=== PATIENT | male | born 1955 | race Caucasian/White ===

== ENCOUNTER 2017-10-23 17:44 | Observation (INO) ==
[2017-10-23] MEDS ORDERED: IOPAMIDOL 100 ML BOTTLE IV ONE (17:45)
[2017-10-23] MEDS ORDERED: 0.9 % SODIUM CHLORIDE 2,000 ML IV ONE (18:28)
[2017-10-23 18:50] LABS: Basophils # (Auto) 0 K/mcL (0.0-0.3); Basophils % (Auto) 0.2 % (0.0-2.0); Eosinophils # (Auto) 0.2 K/mcL (0.0-0.7); Granulocytes % (Auto) 78.8 % (38.0-78.0); Lymphocytes # (Auto) 1.3 K/mcL (1.5-4.8); Lymphocytes % (Auto) 13.1 % (15.5-49.0); Mean Cell Volume 90.8 fL (80.0-100.0); Mean Corpuscular HGB Conc 33.3 g/dL (31.0-36.0); Mean Corpuscular Hemoglobin 30.2 pg (26.0-34.0); Monocytes # (Auto) 0.6 K/mcL (0.1-0.9); Monocytes % (Auto) 5.9 % (1.0-12.0); Platelet Count 173 K/mcL (140-440); RBC 5.19 M/mcL (4.50-5.90); Red Cell Distribution Width 12.7 % (11.5-14.5)
[2017-10-23 19:11] LABS: ALT/SGPT 23 U/l (0-40); Albumin 4.3 gm/dL (3.2-5.2); Albumin/Globulin Ratio 1.7 (1.0-2.3); Alkaline Phosphatase 89 U/L (39-117); Blood Urea Nitrogen 16 mg/dl (6-20); Creatine Kinase 310 IU/L (24-195); Creatine Kinase MB 6.3 ng/ml (0-4.9); Myoglobin 120 ng/ml (28-72)
--- NOTE | 2017-10-23 19:41 | Cat Scan Report ---
CLINICAL INFORMATION: Syncope. Fall. Chiropractic manipulation COMPARISON: None. TECHNIQUE: Axial noncontrast-enhanced images through the brain. FINDINGS: No acute intracranial hemorrhage. No intra-axial hematoma. Cerebral hemispheres are negative. No localized mass effect. No midline shift. Brain thigh is normal. No hydrocephalus. Brainstem and cerebellum are negative. No focal attenuation abnormality. No acute abnormality. No intracranial, extra-axial abnormality. No subdural or subarachnoid hemorrhage. Temporal bones are negative. Calvarium is negative. No fracture. No lytic lesion. IMPRESSION: Negative noncontrast enhanced brain CT scan The exam was performed using radiation dose optimization techniques including, but not limited to, automated exposure control, adjustment of the mA and/or kV according to patient size and use of iterative reconstruction technique. Interpreted and Authenticated by: Zaid Mera 10/23/17
--- NOTE | 2017-10-23 20:01 | Cat Scan Report ---
ORIGINAL REPORT CLINICAL INFORMATION: Syncope. Fall. Chiropractic manipulation TECHNIQUE: Axial images through the neck. 80 mL of intravenous contrast material injected. Scanning was performed during arterial phase. Sagittal and coronally reformatted images. MIP reformatted images. COMPARISON: None. FINDINGS: Abnormal right vertebral artery. Origin of the right vertebral artery is normal. Right vertebral artery is patent to the C6 level. There is occlusion of the right vertebral artery from C6 to the skull base. There is reconstitution at the skull base with patent intracranial right vertebral artery. There is a single short segment of intraluminal contrast material at the C2-3 level. Findings are consistent with dissection and occlusion. High-grade, subtotal occlusion is possible. Catheter angiography may be helpful to evaluate for patency and to determine whether anticoagulation is appropriate. Left vertebral artery is normal. Common carotid arteries and internal carotid arteries are normal. Intracranial vertebral arteries are patent and normal. Basilar artery is normal. No basilar artery stenosis. Petrous, cavernous, supraclinoid segments of the internal carotid arteries are normal. There is atherosclerotic calcification within the cavernous segment of the left internal carotid artery. M1 segments of the middle cerebral arteries and A1 segments of the anterior cerebral arteries are negative. Moderate to severe degenerative disc disease at C5-6. C6-7 disc is severely narrowed and there may be partial bony fusion. No cervical spine fracture. No perched or locked facet. Spinous processes are negative. No prevertebral soft tissue swelling. No cervical soft tissue abnormality. Visualized portions of the lungs are negative. Superior mediastinum is negative. IMPRESSION: 1. 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 Subtotal occlusion is not excluded and catheter angiography may be helpful if clinically indicated 2. Findings are consistent with right vertebral artery dissection. 3. No other vascular abnormalities. Intracranial portion of the right vertebral artery is patent 4. Degenerative disc disease as above ADDENDUM #1 Addendum: In the impression the first finding described right vertebral artery dissection and partial occlusion. I meant to describe occlusion on the CTA rather than partial occlusion. As described for angiography may be helpful to evaluate for subtotal occlusion. Interpreted and Authenticated by: Zaid Mera 10/24/17
[2017-10-23] MEDS ORDERED: CLOPIDOGREL 75 MG TABLET PO ONE (21:14)
[2017-10-23] MEDS ORDERED: ASPIRIN 325 MG ENTERIC COATED TABLET PO ONE (21:14)
--- NOTE | 2017-10-23 21:16 | Emergency Department Note ---
Syncope HPI - General Chief Complaint: Syncope Stated Complaint: Syncope Time Seen by Provider: 10/23/17 18:05 Source: patient Mode of arrival: ambulatory Limitations: no limitations - History of Present Illness HPI Narrative: This 62-year-old male [facility] patient comes into the ER tonight for a syncopal episode. He was at a concert in the [facility] last night in the morning he got up to go the bathroom had a brief syncopal episode. He immediately picked himself up he was not injured. After getting dressed and getting ready to drive back to this area they stopped at [employer] where he had another syncopal episode in the bathroom and woke up on the floor. There was no warning. This time he did injure his neck and his shoulders and upper back. He was diaphoretic and had some pallor after this. He was exhausted for most of the drive back. because of the new shoulder and neck pain when he got back to [facility] he visited the $20 chiropractor advertised in [place]. He had his neck adjusted and that was was feeling better but decided to come into the ER to have the fainting episodes investigated. He does admit to drinking some alcohol last night but not this morning. He has never had anything like this before and notes that he had a recent physical with his primary care which was normal except for vitamin D deficiency. He says that he frequently hikes in the [place] and up and down hills without any difficulty. He drinks lots of fluids including soda. Denies seizure activity bowel or bladder issues - Related Data Home Medications Medication Instructions Recorded Confirmed Cetirizine HCl [All Day Allergy] 10 mg PO DAILY 10/23/17 10/23/17 Cholecalciferol (Vitamin D3) 5,000 unit PO DAILY 10/23/17 10/23/17 [Dialyvite Vitamin D] Docusate Sodium [Colace Clear] 50 mg PO BID 10/23/17 10/23/17 Fluticasone Propionate [Flonase] 1 spray NS BID 10/23/17 10/23/17 Montelukast Sodium [Singulair] 10 mg PO DAILY 10/23/17 10/23/17 Naproxen 500 mg PO BID 10/23/17 10/23/17 pseudoephedrine 30 mg tablet 30 mg PO BID tab 10/23/17 10/23/17 Allergies Allergy/AdvReac Type Severity Reaction Status Date / Time No Known Drug Allergies Allergy Verified 10/23/17 17:53 Review of Systems All systems ED: reviewed and negative except as stated. Past Medical History - Past Medical History Attestation: Yes: The following information was validated with the patient. Medical history: Reports: other (Allergic rhinitis, large prostate, vitamin D deficiency). Denies: hypertension Surgical history ED: Reports: tonsillectomy, other (Dental, deviated septum) - Social History smoking status: Never smoker Alcohol use: Reports: Recent Last drink: days (ago) Drug use: Reports: none Physical Exam No acute distress resting comfortably. Normocephalic atraumatic. Conjunctive are clear sclerae nonicteric. Pupils equal round reactive light accommodation. Extraocular movements are intact. Face is symmetrical. No nasal discharge or congestion. Oropharynx is pink and moist. Posterior pharynx is clear. Tongue is midline. Initially he is in a c-collar -posterior neck is nontender at this time as is the shoulder areas . Anterior neck is supple without lymphadenopathy thyromegaly or carotid bruit. Heart is regular rate and rhythm no murmur appreciated. Lungs are clear to auscultation bilaterally without wheezes rales rhonchi or respiratory distress. Abdomen soft nontender nondistended. No pedal edema. +2 radial pulse. Alert oriented. No dysarthria ataxia or tremor. Stands and walks without difficulty Limitations: no limitations Course Vital Signs Temperature 97.5 F 10/23/17 17:45 Pulse Rate 70 10/23/17 17:45 Respiratory Rate 20 10/23/17 17:45 Blood Pressure 170/91 10/23/17 17:45 Pulse Oximetry (%) 97 10/23/17 17:45 Temperature 97.5 F 10/23/17 17:45 Pulse Rate 67 10/23/17 22:30 Respiratory Rate 17 10/23/17 22:30 Blood Pressure 168/90 10/23/17 22:30 Pulse Oximetry (%) 91 10/23/17 22:30 Syncope - Lab Data Lab results reviewed: Yes I reviewed the patient's lab results. Result diagrams: 10/23/17 18:30 10/23/17 18:30 Lab Results 05/16/18 05/16/18 05/16/18 Range/Units 18:30 18:30 18:30 WBC 9.6 (4.5-11.0) K/mcL RBC 5.19 (4.50-5.90) M/mcL Hgb 15.7 (13.5-16.5) g/dL Hct 47.1 (41.0-55.0) % POC Hct (41.0-55.0) % MCV 90.8 (80.0-100.0) fL MCH 30.2 (26.0-34.0) pg MCHC 33.3 (31.0-36.0) g/dL RDW 12.7 (11.5-14.5) % Plt Count 173 (140-440) K/mcL MPV 11.3 H (7.4-10.4) fL Gran % 78.8 H (38.0-78.0) % Lymph % (Auto) 13.1 L (15.5-49.0) % Granite % (Auto) 5.9 (1.0-12.0) % Eos % (Auto) 2.0 (0.0-7.0) % Baso % (Auto) 0.2 (0.0-2.0) % Gran # 7.5 (1.8-8.0) K/mcL Lymph # (Auto) 1.3 L (1.5-4.8) K/mcL Granite # (Auto) 0.6 (0.1-0.9) K/mcL Eos # (Auto) 0.2 (0.0-0.7) K/mcL Baso # (Auto) 0 (0.0-0.3) K/mcL VBG Lactic Acid (0.5-2.2) mmol/L POC Sodium (133-145) mmol/L Sodium 139 (133-145) mmol/L POC Potassium (3.3-5.1) mmol/L Potassium 4.1 (3.3-5.1) mmol/L POC Chloride (96-108) mmol/L Chloride 99 (96-108) mmol/L Carbon Dioxide 26 (22-30) mmol/L POC Total CO2 (22-30) mmol/L Anion Gap 14.0 (8-16) POC BUN (6-20) mg/dl BUN 16 (6-20) mg/dl Creatinine 0.9 (0.7-1.2) mg/dl POC Creatinine (0.7-1.2) mg/dl GFR Calculation 93 Glucose 103 (70-105) mg/dL POC Glucose (70-105) mg/dL Calcium 9.5 (8.6-10.4) mg/dl POC WB Ioniz Calcium (1.16-1.32) mmol/L Magnesium (1.6-2.5) mg/dL Total Bilirubin 0.3 (0.0-1.0) mg/dL AST 25 (0-37) U/l ALT 23 (0-40) U/l Alkaline Phosphatase 89 (39-117) U/L Total Creatine Kinase 310 H (24-195) IU/L CK-MB (CK-2) 6.3 H (0-4.9) ng/ml Myoglobin 120 H (28-72) ng/ml Troponin T < 0.01 (0-0.03) ng/ml Total Protein 6.8 (5.9-8.4) gm/dL Albumin 4.3 (3.2-5.2) gm/dL Globulin 2.5 (2.2-3.7) gm/dL Albumin/Globulin Ratio 1.7 (1.0-2.3) Urine Opiates Screen (NONDETECTED) Ur Oxycodone Screen (NONDETECTED) Urine Methadone Screen (NONDETECTED) Ur Barbiturates Screen (NONDETECTED) Ur Phencyclidine Scrn (NONDETECTED) Ur Amphetamines Screen (NONDETECTED) U Benzodiazepines Scrn (NONDETECTED) Urine Cocaine Screen (NONDETECTED) U Marijuana (THC) Screen (NONDETECTED) 10/23/17 10/23/17 10/23/17 Range/Units 18:39 18:39 21:00 WBC (4.5-11.0) K/mcL RBC (4.50-5.90) M/mcL Hgb (13.5-16.5) g/dL Hct (41.0-55.0) % POC Hct 45.0 (41.0-55.0) % MCV (80.0-100.0) fL MCH (26.0-34.0) pg MCHC (31.0-36.0) g/dL RDW (11.5-14.5) % Plt Count (140-440) K/mcL MPV (7.4-10.4) fL Gran % (38.0-78.0) % Lymph % (Auto) (15.5-49.0) % Granite % (Auto) (1.0-12.0) % Eos % (Auto) (0.0-7.0) % Baso % (Auto) (0.0-2.0) % Gran # (1.8-8.0) K/mcL Lymph # (Auto) (1.5-4.8) K/mcL Granite # (Auto) (0.1-0.9) K/mcL Eos # (Auto) (0.0-0.7) K/mcL Baso # (Auto) (0.0-0.3) K/mcL VBG Lactic Acid 1.3 (0.5-2.2) mmol/L POC Sodium 137 (133-145) mmol/L Sodium (133-145) mmol/L POC Potassium 4.0 (3.3-5.1) mmol/L Potassium (3.3-5.1) mmol/L POC Chloride 103 (96-108) mmol/L Chloride (96-108) mmol/L Carbon Dioxide (22-30) mmol/L POC Total CO2 26 (22-30) mmol/L Anion Gap (8-16) POC BUN 18 (6-20) mg/dl BUN (6-20) mg/dl Creatinine (0.7-1.2) mg/dl POC Creatinine 1.0 (0.7-1.2) mg/dl GFR Calculation Glucose (70-105) mg/dL POC Glucose 103 (70-105) mg/dL Calcium (8.6-10.4) mg/dl POC WB Ioniz Calcium 1.19 (1.16-1.32) mmol/L Magnesium 1.8 (1.6-2.5) mg/dL Total Bilirubin (0.0-1.0) mg/dL AST (0-37) U/l ALT (0-40) U/l Alkaline Phosphatase (39-117) U/L Total Creatine Kinase (24-195) IU/L CK-MB (CK-2) (0-4.9) ng/ml Myoglobin (28-72) ng/ml Troponin T (0-0.03) ng/ml Total Protein (5.9-8.4) gm/dL Albumin (3.2-5.2) gm/dL Globulin (2.2-3.7) gm/dL Albumin/Globulin Ratio (1.0-2.3) Urine Opiates Screen None detected (NONDETECTED) Ur Oxycodone Screen None detected (NONDETECTED) Urine Methadone Screen None detected (NONDETECTED) Ur Barbiturates Screen None detected (NONDETECTED) Ur Phencyclidine Scrn None detected (NONDETECTED) Ur Amphetamines Screen None detected (NONDETECTED) U Benzodiazepines Scrn None detected (NONDETECTED) Urine Cocaine Screen None detected (NONDETECTED) U Marijuana (THC) Screen None detected (NONDETECTED) Urinalysis [id number] dipstick showed specific gravity 1.020 but otherwise normal - Radiology Data Radiology results reviewed: Yes I reviewed the patient's radiology results. CT scan of the head is read as normal CT scan of the neck soft tissues angiogram shows right-sided vertebral artery dissection with occlusion from C6 to the base of the skull. Also fused vertebrae C6-C7 with collapse of the disc-this is chronic. Significant degenerative changes to the neck - EKG Data EKG attestation: Yes I reviewed and interpreted this EKG. EKG results narrative: EKG showed a rate of 70 normal sinus rhythm without evidence of ischemia Disposition Pt seen by HUMAN SERVICES MANAGER/PA only: No Clinical Impression: Syncope and collapse, Vertebral artery dissection Occlusion of vertebral artery without cerebral infarction Qualifiers: Laterality: right Qualified Code(s): I65.01 - Occlusion and stenosis of right vertebral artery Summary: After initial interview and exam ordered workup which included EKG laboratory and CT scans. Notably the patient is asymptomatic at this time with no neurologic deficits After CT scan showed right vertebral artery dissection with partial to total occlusion I discussed the case with Dr. Scott, vascular surgeon at [place]. He did not feel that the syncopal episodes were related to the vertebral artery dissection as this would cause a posterior circulation syndrome which would include gait abnormalities and visual symptoms which the patient does not have. Further the patient has intact bilateral internal carotids as well as the right vertebral which are adequately supplying his brain. Dr. Scott recommended that we start him on dual antiplatelets such as aspirin/Plavix or Aggrenox and admit to the hospital for observation and workup of syncope as well as observing for strokelike symptoms overnight-he is asymptomatic though at this time. He said at this point standard of care is not to treat these totally occluded vertebral arteries but simply to monitor and prove they are safe to go home. I discussed the case with our hospitalist, Dr. Horn agreed to accept the patient for workup of the 2 syncopal episodes this morning as well as monitor for arrhythmias and stroke overnight, especially in light of the dissecting vertebral artery on the right. Disposition: Xfer As Outpt/Obs ([facility]) Condition: Fair
[2017-10-23] MEDS ORDERED: ASPIRIN 81 MG TAB.CHEW ONE (21:23)
[2017-10-23 21:35] LABS: Amphetamine Screen,Urine NONE DETECTED (NONDETECTED); Benzodiazepines Screen,Urine NONE DETECTED (NONDETECTED); Cocaine Screen,Urine NONE DETECTED (NONDETECTED); Opiate Screen,Urine NONE DETECTED (NONDETECTED); Oxycodone, Urine Screen NONE DETECTED (NONDETECTED)
[2017-10-23] MEDS ORDERED: ACETAMINOPHEN 325 MG TABLET PO PRN (22:54)
[2017-10-23] MEDS ORDERED: ONDANSETRON 4 MG/2 ML VIAL IV PRN (22:54)
[2017-10-23] MEDS ORDERED: oxyCODONE/APAP 5/325MG TABLET PO PRN (22:54)
[2017-10-23] MEDS ORDERED: NALOXONE HCL 0.4 MG/ML VIAL IV PRN (22:54)
--- NOTE | 2017-10-23 23:24 | Internal Med History&Physical ---
Medical - H&P: HPI Patient information: Note initiated : 10/23/17 at 11:21 pm Service Date, if different from initiated Date: [] Patient: Sharad Rosenberg 62 y/o M admitted on 10/23/17 for Syncope. Chief Complaint: [] History of present illness: Mr. Rosenberg is a 62 year old Male presents to the emergency room today after 2 episodes of syncope since this morning. The patient went to a concert yesterday I believe in [place], he had approximately 4 drinks to 5 drinks over a period of 5 hours, he thinks he ate adequately and drank a lot of pop but did not drink much fluids. The next morning he woke up and passed out for a short period of time, he remembers passing out and falling down, getting up and using the restroom. He went back and was fine after that, he then drove and was on his way back when he stopped at [employer]. While walking towards a [employer] restroom he was feeling a bit queasy and not well, he entered the restroom and then he passed down he was passed out for a short while he remembers waking up fixing that has been, using the restroom. He was sweaty peak fatigued after this episode. He flushed his face with water, sat down ate something after which he felt better. His then drove since then. After his fall at [employer] he has complained about significant pain in his neck. The pain was in the left side, intermittent sharp worsening radiating down the arm. The patient applied some topical analgesic to same. He then went to see a chiropractor after he arrived in [facility] who stated the neck for him after which he felt better. He then came to the emergency room for evaluation of his syncope. In the ER, the patient has stable vital signs and stable labs, he has mildly elevated CK. The patient EKG shows normal sinus rhythm, the patient chest x- ray is negative U tox is negative. 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 The case was reviewed with vascular surgery Dr Scott at [place]. He noted that the patient did not require transfer to higher center, this should be managed with antiplatelet agents advised aspirin and Plavix. The patient should be monitored overnight to ensure that there is no CVA. Also workup for syncope advised as he does not believe that the vertebral dissection was the cause for syncope. Patient is being admitted to the hospital for further evaluation. He received aspirin and Plavix in the ED. All systems: reviewed and no additional remarkable complaints except as stated ( 10 point systems reviewed, negative except as mentioned in the HPI) Medical - H&P: PMH Medical history: Multiple allergies Vitamin D deficiency History of kidney stones Surgical history: TOnsillectemy, adnodectomy Pertinent family history: mother , brain tumor, sister ca breast GM cad, GF cad, both had WI Social history: lives with etoh socially, ex tobacco chewer, many years ago - no recreational drug use. Medical - H&P: Meds Home Medications Medication Instructions Recorded Confirmed Type Cetirizine HCl [All Day Allergy] 10 mg PO DAILY 10/23/17 10/23/17 History Cholecalciferol (Vitamin D3) 5,000 unit PO DAILY 10/23/17 10/23/17 History [Dialyvite Vitamin D] Docusate Sodium [Colace Clear] 50 mg PO BID 10/23/17 10/23/17 History Fluticasone Propionate [Flonase] 1 spray NS BID 10/23/17 10/23/17 History Montelukast Sodium [Singulair] 10 mg PO DAILY 10/23/17 10/23/17 History Naproxen 500 mg PO BID 10/23/17 10/23/17 History pseudoephedrine 30 mg tablet 30 mg PO BID tab 10/23/17 10/23/17 History Allergies Allergy/AdvReac Type Severity Reaction Status Date / Time No Known Drug Allergies Allergy Verified 10/23/17 17:53 Medical - H&P: Exam - Constitutional Vitals: Temp Pulse Resp BP Pulse Ox 97.5 F 67 17 168/90 91 10/23/17 17:45 10/23/17 22:30 10/23/17 22:30 10/23/17 22:30 10/23/17 22:30 Exam: GENERAL: The patient is a well-developed, well-nourished in no apparent distress. Is alert and oriented x3. VITAL SIGNS: Reviewed and as noted elsewhere. HEENT: Head is normocephalic and atraumatic. Extraocular muscles are intact. Pupils are equal, round, and reactive to light. Nares appeared normal. Mouth appears any without lesions. Mucous membranes are moist. NECK: Normal to inspection, Supple, No lymphadenopathy or thyromegaly. LUNGS: Air entry equal on both sides, no wheezing, crackles or rhonchi noted. No accessory muscles of respiration HEART: Regular rate and rhythm normal, S1 and S2 heard, no Gallop, S3 or Rub Noted, No Gross murmur heard. ABDOMEN: Soft, nontender, and nondistended. Positive bowel sounds. No hepatosplenomegaly was noted. EXTREMITIES: No cyanosis, clubbing, rash, lesions or edema. NEUROLOGIC: Cranial nerves II through XII are grossly intact. Motor and Sensory System Grossly Intact PSYCHIATRIC: Normal affect, Normal Mood. Appropriate Behavior. SKIN: No ulceration or wounds noted, No jaundice, No rash noted. Medical - H&P: Reslt - Labs CBC & Chem 7: 10/23/17 18:30 10/23/17 18:30 Labs: Short CBC 10/23/17 Range/Units 18:30 WBC 9.6 (4.5-11.0) K/mcL Hgb 15.7 (13.5-16.5) g/dL Hct 47.1 (41.0-55.0) % Plt Count 173 (140-440) K/mcL BMP 10/23/17 18:30 Sodium 139 Potassium 4.1 Chloride 99 Carbon Dioxide 26 BUN 16 Creatinine 0.9 Glucose 103 Calcium 9.5 Cardiac Enzymes 10/23/17 10/23/17 Range/Units 18:30 18:30 Total Creatine Kinase 310 H (24-195) IU/L CK-MB (CK-2) 6.3 H (0-4.9) ng/ml Troponin T < 0.01 (0-0.03) ng/ml Liver Function 10/23/17 Range/Units 18:30 Total Bilirubin 0.3 (0.0-1.0) mg/dL AST 25 (0-37) U/l ALT 23 (0-40) U/l Alkaline Phosphatase 89 (39-117) U/L Albumin 4.3 (3.2-5.2) gm/dL Medical - H&P: A/P - Narrative A/P Narrative: a/P Syncope: workup pending, monitor on tele, noted to have one bradycardic spell during passing urine, nearly passed out, HR dropped to 27, then picked up, but the previous 2 sources he had not yet reached the bathroom when he passed out. Will get in touch with cardiology to see if he needs a pacemaker, plan to keep atropine by the bed side, ext pacer leads applied Vertebral Artery dissection: after a fall, vs during spinal manipulation. As per Dr Scott, no intervention, no neurological deficits, plan for neurochecks q 2 hrs, plan for asa and plavix, outpatient follow up with vascular surgery DVT hep sq Diet regular Full code. I have called the transfer center at [place] waiting to hear from them.
[2017-10-23] MEDS ORDERED: ATROPINE SULFATE 1 MG/10 ML SYRINGE IV ONE (23:35)
[2017-10-24] MEDS: 0.9 % SODIUM CHLORIDE 10 ML SYRINGE IV SCH ×2 (00:22→07:54)
--- NOTE | 2017-10-24 06:24 | XRay Report ---
INDICATION: Vertebral artery occlusion. History of chiropractic manipulation TECHNIQUE: AP chest x-ray,portable semiupright COMPARISON: None FINDINGS:Lungs are negative. No parenchymal infiltrate or mass. Heart size and vascularity are normal. Nahed and mediastinum are negative. No pleural fluid. IMPRESSION: Negative AP chest x-ray Interpreted and Authenticated by: Zaid Mera 10/24/17
[2017-10-24] MEDS ORDERED: HEPARIN 5,000 UNIT/ML VIAL SQ SCH (09:00)
[2017-10-24] MEDS ORDERED: CLOPIDOGREL 75 MG TABLET PO SCH (09:00)
[2017-10-24] MEDS ORDERED: ASPIRIN 81 MG TAB.CHEW PO SCH (09:00)
--- NOTE | 2017-10-24 10:50 | Transfer Summary ---
Transfer Discharge Sum: Prov Patient information: Note initiated : 10/24/17 at 10:48 am Service Date, if different from initiated Date: [] Patient: Sharad Rosenberg 62 y/o M admitted on 10/23/17 for Syncope. Chief Complaint: [] Date of admission: 10/23/17 22:43 Discharge Date: 10/24/17 Primary care physician: Jason Lopez Admitting clinician: Maegan Horn Consults: 10/23/17 21:18 Consult to Physician [CONS] Stat Comment: Consulting Provider: Maegan Horn Reason For Exam: Physician to Consult Discharging clinician: Maegan Horn Receiving physician/facility: Dr Dale. Transfer Discharge Sum: Diag - Discharge Diagnosis (1) Sinus arrest Status: Acute Transfer Discharge Sum: Med - Medications Active and Home Medications: Home Medications Cetirizine HCl [All Day Allergy] 10 mg PO DAILY 10/23/17 [History Confirmed ] Cholecalciferol (Vitamin D3) [Dialyvite Vitamin D] 5,000 unit PO DAILY 10/23/17 [History Confirmed 10/23/17] Docusate Sodium [Colace Clear] 50 mg PO BID 10/23/17 [History Confirmed 10/23/17 ] Fluticasone Propionate [Flonase] 1 spray NS BID 10/23/17 [History Confirmed ] Montelukast Sodium [Singulair] 10 mg PO DAILY 10/23/17 [History Confirmed ] Naproxen 500 mg PO BID 10/23/17 [History Confirmed 10/23/17] pseudoephedrine 30 mg tablet 30 mg PO BID tab 10/23/17 [History Confirmed 10/23] Active Medications Acetaminophen (Tylenol) 650 mg PO Q6HP PRN PRN Reason: PAIN/FEVER > 101 Aspirin (Aspirin) 81 mg PO DAILY [facility] Last Admin: 10/24/17 09:55 Dose: 81 mg Clopidogrel Bisulfate (Plavix) 75 mg PO DAILY [facility] Last Admin: 10/24/17 09:55 Dose: 75 mg Heparin Sodium (Porcine) (Heparin) 5,000 unit SQ Q12 [facility] Last Admin: 10/24/17 09:55 Dose: 5,000 unit Naloxone HCl (Narcan) 0.1 mg IV Q2MIN PRN PRN Reason: Opiate Reversal Ondansetron HCl (Zofran) 4 mg IV Q4HP PRN PRN Reason: Nausea And Vomiting Oxycodone/Acetaminophen (Percocet 5-325 Mg) 1 tab PO Q4HP PRN PRN Reason: Pain Sodium Chloride (Saline Flush) 10 ml IV Q8 BUNNY Last Admin: 10/24/17 07:54 Dose: 10 ml Transfer Discharge Sum: Hosp Hospital course: Mr. Rosenberg is a 62 year old Male presents to the emergency room today after 2 episodes of syncope yesterday. The patient went to a concert yesterday I believe in [place], he had approximately 4 drinks to 5 drinks over a period of 5 hours, he thinks he ate adequately and drank a lot of pop but did not drink much fluids. The next morning he woke up and passed out for a short period of time, he remembers passing out and falling down, getting up and using the restroom. He went back and was fine after that, he then drove and was on his way back when he stopped at [employer]. While walking towards a [employer] restroom he was feeling a bit queasy and not well, he entered the restroom and then he passed down he was passed out for a short while he remembers waking up fixing that has been, using the restroom. He was sweaty peak fatigued after this episode. He flushed his face with water, sat down ate something after which he felt better. His then drove since then. After his fall at [employer] he has complained about significant pain in his neck. The pain was in the left side, intermittent sharp worsening radiating down the arm. The patient applied some topical analgesic to same. He then went to see a chiropractor after he arrived in [facility] who stated the neck for him after which he felt better. He then came to the emergency room for evaluation of his syncope. In the ER, the patient has stable vital signs and stable labs, he has mildly elevated CK. The patient EKG shows normal sinus rhythm, the patient chest x- ray is negative U tox is negative. 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 The case was reviewed with vascular surgery Dr Scott at [place]. He noted that the patient did not require transfer to higher center, this should be managed with antiplatelet agents advised aspirin and Plavix. The patient should be monitored overnight to ensure that there is no CVA. Also workup for syncope advised as he does not believe that the vertebral dissection was the cause for syncope. Patient is being admitted to the hospital for further evaluation. He received aspirin and Plavix in the ED. The patient was admitted to the hospital on tele, for observation. Last night he developed syncope, while trying to pass urine, he developed symptomatic bradycardia. HR dropped to 27, and the patient nearly passed out, recovered within a minute. He had long cardiac pauses, with max of 3.2 seconds. I reviewed the case with cardiology this AM at [place], and given all his episodes so far were around him using the rest room, it was thought this was micturation related syncope. While rounding on the patient this AM, he had another episode with symptomatic bradycardia, hr d ropped to 27 on tele monitor, he has sinus arrest with verntricular escape rhythm. He passed out for around 10-15 seconds, felt flushed and then slowly recovered. He was sitting in the bed with no activity during this episode. He does have neck pain from the fall, but is not on any meds since admission, I do not see any neg chronotropic agent, and we have not given him any agents yet. I reviewed the case with Dr Dale again this morning, and he graciously accepted the patient for transfer to [place] for a pacemaker implant. Plan of care reviewed with the patient and family. Echo is being done here, its my understanding that the medical fee clerk at [place] have access to our pacs system and should be able to review these images. - Time Spent with Patient Total time spent providing and/or coordinating transfer services: Greater than 30 minutes Transfer Discharge Sum: Exam - Constitutional Vitals: Vital Signs Temp Pulse Pulse Resp BP BP Pulse Ox 10/24/17 08:07 98.0 F 64 16 142/96 98 10/24/17 08:00 97 10/24/17 04:00 98.2 F 64 16 124/82 95 10/23/17 22:54 60 16 146/87 10/23/17 22:43 97.9 F 66 18 169/87 98 10/23/17 22:30 67 17 168/90 91 10/23/17 22:01 74 16 153/95 99 10/23/17 21:33 69 22 171/91 96 10/23/17 21:04 74 17 134/111 94 10/23/17 20:32 74 19 164/89 97 10/23/17 20:02 18 174/102 10/23/17 19:47 72 13 163/100 98 10/23/17 19:43 81 27 H 179/95 99 10/23/17 19:01 66 19 163/85 100 10/23/17 18:54 72 17 164/90 100 10/23/17 18:52 77 18 173/99 98 10/23/17 18:49 74 18 159/83 99 10/23/17 18:46 71 19 157/88 97 10/23/17 18:41 67 16 98 10/23/17 18:31 74 16 158/81 99 10/23/17 18:17 91 H 17 172/94 100 10/23/17 18:08 76 15 176/95 99 10/23/17 17:45 97.5 F 70 20 170/91 97 Intake and Output 10/23/17 10/24/17 10/24/17 21:59 05:59 13:59 Intake Total 2300 / 2300 360 / 360 Output Total 1225 / 1225 375 / 375 Balance 1075 / 1075 -15 / -15 Intake: IV 1999 Sodium Chloride 0.9% 2,000 ml @ 1999 Wide Open IV .Q0M ONE Rx#: [id number] Oral 300 / 300 GI Tube Flush 360 / 360 Output: Urine Catheter Amount 150 / 150 Void Amount 1075 / 1075 375 / 375 Other: Meal Breakfast Percent of Meal Consumed 100% Weight 180 lb 183 lb 8 oz Additional comments: Constitutional; Afebrile, cooperative, alert, not in distress. Eyes- No icterus, , No periorbital swelling Ears- Ext ear normal, hearing normal to conversation. Neck- Midline trachea, supple Respiratory system: Air Entry equal on both sides, No crackles or wheezing, no rhonchi. CVS- Rate rhythm regular, S1,S2 heard, no gallop, no rub. Abdomen- Soft nontender abdomen, no organomegaly, no tenderness, no guarding or rigidity, [employer]- AOOx3, moving all extremities, no gross focal deficit noted. Transfer Discharge Sum: Data Procedures and tests throughout hospitalization: Pending Orders 05/16/18 18:28 EKG (ED) ONCE 10/23/17 21:18 Resuscitation Status Routine Consult to Physician [CONS] Stat 10/23/17 21:19 Regular Diet 10/23/17 22:54 Case Management Referral .Routine hospital attendant CONT Elevate head of bed .ROUTINE IV Insertion/Management QSHIFT Intake and Output qshiftio Neurological Assessment Q2 Notify Provider .routine Placement to Observation Routine Vital Signs Q4H Weight Monitoring QHS US echo doppler w/ con Routine 0.9 % Sodium Chloride [Saline Flush] 10 ml IV Q8 Acetaminophen [Tylenol] 650 mg PO Q6HP PRN Naloxone HCl [Narcan] 0.1 mg IV Q2MIN PRN Ondansetron [Zofran] 4 mg IV Q4HP PRN oxyCODONE/APAP [PERCOCET 5-325 mg] 1 [address] PO Q4[address] to Adjust Diet/Supplements as Needed Routine Pulse Oximetry .ROUTINE 10/24/17 09:00 Aspirin 81 mg PO DAILY Clopidogrel [Plavix] 75 mg PO DAILY Heparin 5,000 unit SQ Q12 Transfer Discharge Sum: A/P - Problem Maintenance (1) Sinus arrest Status: Acute - Plan Overall status at transfer: patient is not back to baseline Disposition: [facility]
== END 2017-10-24 13:03 | disposition short-term general hospital (02) ==
LOC: ICU 17:44 → ED 17:44 → ICU 22:52
PROVIDERS: ADMIT Internal Medicine; ATTEND Internal Medicine